=== PATIENT | female | born 1980 | race American Indian/Alaskan Native ===

== ENCOUNTER 2018-02-28 00:07 | Emergency (ER) | payer OTHER ==
[2018-02-28] MEDS ORDERED: TYLENOL ONE (00:37)
[2018-02-28] MEDS ORDERED: TYLENOL PO ONE (00:40)
[2018-02-28] MEDS ORDERED: NACL 0.9% 1000 ML 1,000 ML IV ONE (01:14)
--- NOTE | 2018-02-28 01:19 | Emergency Department Report ---
ED General Adult HPI - General Chief complaint: Chest Pain Stated complaint: CHEST PAIN Time Seen by Provider: 02/28/18 01:09 Source: patient Mode of arrival: Ambulatory Limitations: No Limitations - History of Present Illness Initial comments: Patient is a 37-year-old female with history of lupus. Patient presented to the ER complaining of chest pain, midsternal increase with inspiration associated with shortness of breath. Patient stated the symptoms started this evening. Patient is from [place] she went to [employer] today and she was in the sun all day and she think this is the reason for her to have the lupus exacerbation. Patient denied any fever, nausea or vomiting. - Related Data Allergies Allergy/AdvReac Type Severity Reaction Status Date / Time morphine Allergy Itching Verified 02/28/18 00:43 ondansetron Allergy Itching Verified 02/28/18 00:43 [From Zofran (as hydrochloride)] Penicillins Allergy Hives Verified 02/28/18 00:43 ED Review of Systems ROS: Stated complaint: CHEST PAIN Other details as noted in HPI Comment: All other systems reviewed and negative Constitutional: denies: chills, fever Respiratory: shortness of breath, SOB with exertion, SOB at rest. denies: cough Cardiovascular: chest pain, palpitations. denies: dyspnea on exertion Gastrointestinal: denies: abdominal pain, nausea, vomiting Skin: rash. denies: lesions ED Past Medical Hx - Past Medical History Previous Medical History?: Yes Additional medical history: lupus. nephritis - Surgical History Past Surgical History?: Yes Additional Surgical History: L hand sx x2. L toe sx. bilat knee replacement. rhinoplasty x2. breast augmentation - Social History Smoking Status: Never Smoker Substance Use Type: None ED Physical Exam - General Limitations: No Limitations General appearance: alert, in distress (moderate respiratory distress) - Head Head exam: Present: atraumatic, normocephalic, normal inspection - Eye Eye exam: Present: normal appearance - ENT ENT exam: Present: normal exam, normal orophraynx, mucous membranes moist - Neck Neck exam: Present: normal inspection, full ROM. Absent: tenderness, meningismus, lymphadenopathy, thyromegaly - Respiratory Respiratory exam: Present: normal lung sounds bilaterally. Absent: respiratory distress, wheezes, rales, rhonchi, stridor, accessory muscle use, decreased breath sounds, prolonged expiratory - Cardiovascular Cardiovascular Exam: Present: tachycardia - GI/Abdominal GI/Abdominal exam: Present: soft, normal bowel sounds. Absent: distended, tenderness, guarding, rebound, rigid, organomegaly, mass, bruit, pulsatile mass - Back Exam Back exam: Present: normal inspection, full ROM, rash noted. Absent: tenderness , CVA tenderness (R), CVA tenderness (L), muscle spasm, paraspinal tenderness, vertebral tenderness - Neurological Exam Neurological exam: Present: alert, oriented X3, CN II-XII intact, normal gait, reflexes normal - Skin Skin exam: Present: rash ED Course Vital Signs 02/28/18 02/28/18 02/28/18 00:34 01:45 02:45 Temperature 98.4 F Pulse Rate 107 H 89 Respiratory 18 16 13 Rate Blood Pressure 171/115 161/107 O2 Sat by Pulse 99 99 Oximetry 02/28/18 02/28/18 02/28/18 03:00 03:15 03:30 Temperature Pulse Rate 91 H 96 H 99 H Respiratory 13 11 L 24 Rate Blood Pressure 161/107 160/110 138/85 O2 Sat by Pulse 100 100 96 Oximetry 02/28/18 02/28/18 02/28/18 03:40 04:10 04:25 Temperature 98 F Pulse Rate Respiratory 16 16 Rate Blood Pressure O2 Sat by Pulse Oximetry 02/28/18 05:28 Temperature Pulse Rate Respiratory 16 Rate Blood Pressure O2 Sat by Pulse Oximetry ED Medical Decision Making - Lab Data Result diagrams: 02/28/18 01:31 02/28/18 01:31 - EKG Data -: EKG Interpreted by In EKG shows normal: sinus rhythm Rate: tachycardia - EKG Data Interpretation: no acute changes - Radiology Data Radiology results: report reviewed Referring Physician: PAULINE CLAUDIO Patient Name: JING ROBLES Date of : 1980 Sex: Female Report Date: 2018-02-28 Report Status: Finalized Findings [facility] [address] [place] [address] Cat Scan Report Signed Patient: JING ROBLES MR#: [id number] : 1980 Acct:[id number] Age/Sex: 37 / F ADM Date: 02/28/18 Loc: ED Attending Dr: Ordering Physician: PAULINE CLAUDIO Date of Service: 02/28/18 Procedure(s): CT angio chest Accession Number(s): [id number] cc: PAULINE CLAUDIO FINAL REPORT EXAM: CT ANGIO CHEST HISTORY: CHEST PAIN,SOB, LUPUS, ELEVATED D-DIMER TECHNIQUE: A CT angiogram was performed following the intravenous injection of 100 cc of Omnipaque 350. Rotational, sagittal, and coronal MIP reconstructions were reviewed. The previous chest CT of 03/21/2010 was reviewed. FINDINGS: There is no evidence of pulmonary embolus or aortic dissection. Heart size is normal. The thoracic aorta is normal in caliber. The lungs are clear. Pleural fluid is not seen. There is no evidence of adenopathy. Pericardial fluid is not seen. There is a small hiatal hernia at the GE junction. In the upper abdomen the adrenal glands appear normal. The skeletal structures are unremarkable. At the thoracic inlet the thyroid gland appears normal. The surrounding soft tissues otherwise reveal a port along the left chest wall. IMPRESSION: No evidence of pulmonary embolus, aortic dissection, or vascular congestion. No acute process in the chest. Small hiatal hernia. Transcribed By: RB Dictated By: JOJO CHEN MD Electronically Authenticated By: JOJO CHEN MD Signed Date/Time: 02/28/18516 DD/ 6 TD/TT: 02/28/18516 - Medical Decision Making I discussed the patient was Dr. Moore, agreed to admit the patient to his service. Critical care attestation.: If time is entered above; I have spent that time in minutes in the direct care of this critically ill patient, excluding procedure time. ED Disposition Clinical Impression: Exacerbation of systemic lupus erythematosus, Chest pain, Shortness of breath Disposition: OP ADMIT IP TO THIS HOSP Is pt being admited?: Yes Condition: Stable Instructions: Chest Pain (ED) Referrals: PRIMARY CARE, [Primary Care Provider] - 3-5 Days
[2018-02-28 02:01] LABS: Alanine Aminotransferase 14 units/L (7-56); Albumin 3.7 g/dL (3.9-5); BUN/Creatinine Ratio 34; Blood Urea Nitrogen 24 mg/dL (7-17); Calcium 9.6 mg/dL (8.4-10.2); Hemolysis Index 15
[2018-02-28] MEDS ORDERED: REGLAN IV ONE (02:21)
[2018-02-28] MEDS ORDERED: SUBLIMAZE IV ONE ×2 (02:21→05:18)
[2018-02-28] MEDS ORDERED: MORPHINE ONE ×2 (02:21→02:22)
[2018-02-28] MEDS ORDERED: ZOFRAN ONE (02:22)
[2018-02-28 02:27] LABS: INR 0.95 (0.87-1.13)
[2018-02-28 02:29] LABS: Partial Thromboplastin Time 54.5 Sec. (24.2-36.6)
[2018-02-28 03:20] LABS: Bilirubin,Urine NEG (Negative); Blood,Urine NEG (Negative); Color,Urine Yellow (Yellow); Hyaline Casts,Urine 1 /LPF; Mucus,Urine FEW /HPF; Protein,Urine <15 mg/dL mg/dL (Negative); Urobilinogen,Urine < 2.0 mg/dL (<2.0)
[2018-02-28 03:33] LABS: Basophils % (Auto) 0.3 % (0.0-1.8); Eosinophils # (Auto) 0.1 K/mm3 (0.0-0.4); Eosinophils % (Auto) 0.7 % (0.0-4.3); Hemoglobin 14.5 gm/dl (10.1-14.3); Lymphocytes # (Auto) 1.6 K/mm3 (1.2-5.4); Lymphocytes % (Auto) 14.8 % (13.4-35.0); Mean Corpuscular HGB Conc 32 % (30-34); Mean Corpuscular Hemoglobin 28 pg (28-32); Mean Corpuscular Volume 86 fl (79-97); Monocytes # (Auto) 0.9 K/mm3 (0.0-0.8); Monocytes % (Auto) 8.7 % (0.0-7.3); Platelet Count 154 K/mm3 (140-440); Red Blood Count 5.26 M/mm3 (3.65-5.03)
--- NOTE | 2018-02-28 03:50 | XRay Report ---
FINAL REPORT EXAM: XR CHEST 1V AP HISTORY: Dyspnea COMPARISON: Chest CT from February 2010. FINDINGS: Frontal view(s) of the chest obtained. Mild cardiac enlargement. No gross consolidation or effusion. No pneumothorax. IMPRESSION: No grossly acute findings.
[2018-02-28] MEDS: KCL 10MEQ/100ML 10 MEQ/100 ML BAG IV SCH ×3 (04:30→09:53)
[2018-02-28] MEDS ORDERED: SUBLIMAZE ONE (05:18)
--- NOTE | 2018-02-28 05:21 | Cat Scan Report ---
FINAL REPORT EXAM: CT ANGIO CHEST HISTORY: CHEST PAIN,SOB, LUPUS, ELEVATED D-DIMER TECHNIQUE: A CT angiogram was performed following the intravenous injection of 100 cc of Omnipaque 350. Rotational, sagittal, and coronal MIP reconstructions were reviewed. The previous chest CT of 03/21/2010 was reviewed. FINDINGS: There is no evidence of pulmonary embolus or aortic dissection. Heart size is normal. The thoracic aorta is normal in caliber. The lungs are clear. Pleural fluid is not seen. There is no evidence of adenopathy. Pericardial fluid is not seen. There is a small hiatal hernia at the GE junction. In the upper abdomen the adrenal glands appear normal. The skeletal structures are unremarkable. At the thoracic inlet the thyroid gland appears normal. The surrounding soft tissues otherwise reveal a port along the left chest wall. IMPRESSION: No evidence of pulmonary embolus, aortic dissection, or vascular congestion. No acute process in the chest. Small hiatal hernia.
[2018-02-28] MEDS ORDERED: ULTRAM PO PRN (05:53)
[2018-02-28] MEDS ORDERED: PHENERGAN PO PRN (05:54)
[2018-02-28] MEDS ORDERED: NITROSTAT SL PRN (05:56)
[2018-02-28] MEDS ORDERED: K-DUR PO ONE (06:04)
[2018-02-28 06:55] LABS: Creatine Kinase MB 3.9 ng/mL (0.0-4.0)
--- NOTE | 2018-02-28 07:54 | History and Physical Report ---
CHIEF COMPLAINT: Chest pain. Other complaint includes generalized body pain. HISTORY OF PRESENT ILLNESS: The patient is a 37-year-old female with known history of lupus erythematosus who came from [place] and went to the recreational center at [employer] and spent the whole day in the sun, and stated that she thinks her symptoms are from exposure to sun. There is history of associated shortness of breath, but no history of nausea or vomiting and no history of diaphoresis or dizziness. The patient was seen in the Emergency Room and presented for admission. The patient also denies history of cough. 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 PAST SURGICAL HISTORY: Pertinent for left hand surgery twice, left toe surgery, bilateral knee replacement, rhinoplasty and breast augmentation surgery. FAMILY HISTORY: Noncontributory. SOCIAL HISTORY: The patient does not smoke, does not drink alcohol or does not use illicit drugs. MEDICATIONS: The patient's home medications are not known at this time. ALLERGIES: THE PATIENT IS ALLERGIC TO MORPHINE, ZOFRAN AND PENICILLIN. REVIEW OF SYSTEMS: CONSTITUTIONAL: There is no fever, no chills, no diaphoresis. HEENT: There is no headache or sore throat. CARDIOVASCULAR: Chest pain is present. No orthopnea. RESPIRATORY: Shortness of breath is present. No cough. GASTROINTESTINAL: There is no nausea, no vomiting, no abdominal pain, diarrhea or constipation. NEUROLOGICAL: There is no numbness, no dizziness, no altered mental status. MUSCULOSKELETAL: Generalized body pain and joint pain noted. No joint swelling. DERMATOLOGICAL: Scattered skin rash noted. No itching. GENITOURINARY: There is no dysuria, hematuria or flank pain. Rest of system review is normal. PHYSICAL EXAMINATION: GENERAL: At the time of exam, the patient was found to be alert, oriented x 3 and not in acute distress. VITAL SIGNS: Shows temperature of 98 degrees Fahrenheit, pulse of 99, respiration 24, blood pressure 138/85, O2 sat of 96% on room air. HEENT: Showed pupils to be equal, round, reactive to light and accommodation. Extraocular muscles are intact. NECK: Supple with no JVD or carotid bruits. CARDIOVASCULAR: Showed normal first and second heart sounds with no gallops or murmurs. RESPIRATORY: Show good air entry on both sides of the lungs with no abnormal breath sounds. GASTROINTESTINAL: Show abdomen to be full, soft, nontender with no organomegaly or rigidity. NEUROLOGIC: Shows no gross deficit. MUSCULOSKELETAL: Show no joint swelling or tenderness. DERMATOLOGICAL: Show some hyperemia in the face and exposed part of the body. GENITOURINARY: Showed no costovertebral angle tenderness. PERTINENT LABORATORY AND IMAGING STUDIES: The patient has CBC done that shows normal white count, elevated hemoglobin of 14.5 and elevated hematocrit of 45. CBC differential showing high monocyte count of 8.7, also slightly elevated segmented neutrophil of 75.5. The patient's coagulation studies show high D-dimer of 1105 and elevated PTT of 54.5. The patient's chemistry showed low potassium level of 3.0 with normal sodium and low chloride of 97.9 and elevated BUN of 24 with low albumin level of 3.7. The patient's urinalysis was unremarkable. Imaging studies: The patient had a CT angiogram of the chest done because of elevated D-dimer and this shows no evidence of pulmonary embolism, no aortic dissection, and no vascular congestion, and shows no acute process in the chest. There is, however, a finding of small hiatal hernia. The patient also had chest x-ray done that shows no grossly acute findings. DIAGNOSES: 1. Chest pain. 2. Lupus erythematosus flare or exacerbation. 3. Hypokalemia. PLAN: 1. The patient will be admitted to medical floor on telemetry and will have cardiac enzymes involving troponin, total CK and CK-MB checked q. 6 hours x 2 more levels. 2. The patient will be n.p.o. for Lexiscan stress test this morning. The patient will be on heparin 5000 units subcutaneously q. 12 hours and will be on IV Solu-Medrol 60 mg every 8 hours. 3. The patient will be on nitroglycerin sublingual 0.4 mg every 5 minutes as needed for chest pain and will be on nitro paste 0.5 mg q. 6 hours. 4. The patient will have potassium replacement of 40 mEq by mouth x 1 dose and will have potassium chloride IV 20 mEq given also. 5. The patient will be on Phenergan 25 mg by mouth every 6 hours as need for nausea and will be on IV tramadol 50 mg every 6 hours as needed for pain. 6. The patient will be on oxygen at 2 liter per minute. Further management of the patient's condition will be dependent on results of stress test that will be done this morning. JOB# [id number] OCN/NTS
[2018-02-28 09:46] VITALS: BP 133/81
[2018-02-28] MEDS ORDERED: HEPARIN SUB-Q SCH (10:00)
[2018-02-28] MEDS ORDERED: ASPIRIN PO SCH (10:00)
--- NOTE | 2018-02-28 19:49 | Discharge Summary ---
Providers - Providers Date of discharge: 02/28/18 Primary care physician: HAYLEY MARINA MD Hospitalization Reason for admission: chest pain Condition: Stable Pertinent studies: CT chest; no evidence of PE, I think dissection or vascular congestion, small hiatal hernia Chest x-ray; no acute abnormality Hospital course: I have not seen this patient Patient left AMA before my rounds As per medical records, 37-year-old female patient with significant history of lupus was admitted early this morning with chest pain Admitting physician has evaluated the patient and recommended stress test However this morning patient wanted to leave AGAINST MEDICAL ADVICE Patient was counseled through her nurse and encouraged to stay in the hospital, undergo stress test and if the test is negative and patient is comfortable patient will be discharged later this day However patient refused to stay in the hospital signed the necessary documents and left AMA I was not present when patient left AMA Disposition: [id number] LEFT AGAINST MED ADVICE Time spent for discharge: 10 min Core Measure Documentation - Palliative Care Palliative Care/ Comfort Measures: Not Applicable - Core Measures Any of the following diagnoses?: none Exam - Physical Exam Narrative exam: Left AMA - Constitutional Vitals: Temp Pulse Resp BP Pulse Ox 98.3 F 50 L 15 133/81 80 L 02/28/18 08:02 02/28/18 10:03 02/28/18 10:03 02/28/18 10:03 02/28/18 09:42 Plan Additional Instructions: Left AGAINST MEDICAL ADVICE Follow up with: HAYLEY MARINA MD [Primary Care Provider] - 3-5 Days
== END 2018-02-28 09:38 | disposition left against medical advice (07) ==
LOC: ED 00:07 → 3A 05:49 → UNDOADMIN 05:49
PROVIDERS: ADMIT Internal Medicine
DX: M32.10 Systemic lupus erythematosus, organ or system involvement unspecified (principal); R07.89 Other chest pain; Z88.0 Allergy status to penicillin; Z88.5 Allergy status to narcotic agent; Z96.653 Presence of artificial knee joint, bilateral
CPT/HCPCS: 36415; 71045; 71275; 80053; 81001; 82140; 82550; 82553; 84484; 84703; 85025; 85379; 85610; 85730; 93005; 93010; 96361; 96374; 96375; 96376; 99285; J2765; J2920; J2930; J3010; J3480; J7030; Q9967; J2270; J2405